=== PATIENT | female | born 1960 | race Caucasian/White ===

== ENCOUNTER → 2019-09-09 | Outpatient (REF) | payer MEDICARE, MEDICAID ==
[2019-09-09 14:10] LABS: BLOOD UREA NITROGEN 12 MG/DL (7-18); CREATININE FOR GFR 0.79 MG/DL (0.55-1.30); GLOMERULAR FILTRATION RATE > 60.0 (>51)
== END ==
LOC: M LABDRAW1 11:43
PROVIDERS: ATTEND Orthopaedic Surgery
DX: M54.6 Pain in thoracic spine (principal)

== ENCOUNTER → 2019-09-25 | Outpatient (CLI) | payer MEDICARE, MEDICAID ==
[~2019-09-25] MED LIST: PROHANCE 279.3MG/ML 15ML VIAL As Ordered ONE; PROHANCE 279.3MG/ML 5ML VIAL As Ordered ONE
--- NOTE | 2019-09-25 14:45 | REPVR ---
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 Contrast material: PROHANCE; Contrast volume: 20 ml; Contrast route: 22; COMPARISON: No relevant prior studies available. FINDINGS: Vertebrae: Mild exaggeration of the thoracic kyphosis. 2 mm of degenerative retrolisthesis of T12 on L1. No acute fracture seen. Mild, chronic anterior wedging of T12. Spinal epidural space: No evidence of epidural mass. Spinal cord: Normal signal. Marrow: Bone marrow signal intensity is benign. There is disc desiccation throughout. Mild to moderate multilevel prevertebral spondylosis. Mild to moderate disc height loss and spondylosis with small endplate Schmorl's nodes from T5-6 through T8-9. A prominent Schmorl's node of T12 superior endplate with adjacent inflammation. There is a smaller Schmorl's node of the L1 superior endplate. Anterior superior endplate inflammation at T9 and L1 is likely inflammatory/degenerative. Trace ventral endplate inflammation elsewhere, likely degenerative. T1-T2: No significant disc disease. No significant spinal canal stenosis. T2-T3: Subtle left paracentral disc protrusion does not contribute to central spinal canal stenosis. T3-T4: No significant disc disease. No significant spinal canal stenosis. T4-T5: Severe right facet arthropathy causing severe right neural foraminal stenosis. Central spinal canal and left foramen are patent. T5-T6: 3 mm cranially migrating right paracentral disc extrusion extends 4 mm above the disc space indenting the right ventral thecal sac causing mild right ventral cord flattening but not contributing to cord myelopathy. Central spinal canal stenosis is mild. The neural foramina are patent. T6-T7: 2 mm right paracentral disc protrusion indents right ventral thecal sac as well as right ventral cord without contributing to cord myelopathy. The central spinal canal remains patent. The neural foramina are patent. T7-T8: 1-2 mm right eccentric central disc protrusion does not contribute to central spinal canal stenosis. The neural foramina are patent. T8-T9: 3 mm right paracentral disc extrusion extends 4 mm above the disc space indenting thecal sac, abutting right cord but not contributing to cord myelopathy. Central spinal canal stenosis is mild. The neural foramina are patent. T9-T10: The central spinal canal is patent. Severe right facet arthropathy causing moderate right neural foraminal stenosis. T10-T11: Mild disc bulge as well as moderate right and mild left facet arthropathy with ligamentum flavum buckling. High-intensity zone in left foraminal disc margin without a focal disc protrusion or extrusion. The central spinal canal is patent. Neural foraminal stenoses are mild. T11-T12: Mild disc bulge as well as moderate facet arthropathy and ligamentum flavum buckling. The central spinal canal remains patent. Mild right neural foraminal stenosis. No significant left neural foraminal narrowing. T12-L1: Retrolisthesis. Cranially and caudally migrating left paracentral disc extrusion measures approximately 5 mm in AP dimension extending approximately 5 mm above the disc space and least 6 mm below disc space. There is indentation of ventral thecal sac as well as ventral cord indentation without cord myelopathy. Central spinal canal stenosis is [id number]. The neural foramina remain patent. Lungs: Patchy right upper lobe opacity, potentially subsegmental atelectasis. Soft tissues: Nonspecific edema in the lower back subcutaneous fat, potentially dependent/positional. IMPRESSION: 1. Images are motion degraded. 2. No evidence of recent compression fracture. 3. Mild to moderate mid thoracic degenerative disc disease. 4. A sizable Schmorl's node of the T12 superior endplate with adjacent endplate inflammation. 5. Advanced facet arthropathy at several levels. 6. Multilevel disc protrusions or extrusions; central spinal canal stenosis is [id number] at the T12-L1 level, mild elsewhere. Electronically signed by: Azalia Ureña On 09/25/2019 14:45:09 PM
== END ==
LOC: M RAD 12:01
PROVIDERS: ATTEND Orthopaedic Surgery
DX: M47.815 Spondylosis without myelopathy or radiculopathy, thoracolumbar region (principal); M51.44 Schmorl's nodes, thoracic region; M51.24 Other intervertebral disc displacement, thoracic region
CPT/HCPCS: 72157; A9576

== ENCOUNTER → 2020-10-19 | Outpatient (REF) ==
--- NOTE | 2020-10-19 12:37 | REPPI ---
INDICATION: DISABILITY. COMPARISON: None TECHNIQUE: AP and lateral views FINDINGS: There is moderate posterior disc space narrowing at every level. There is mild anterior lipping at every level. Vertebral body height and alignment is within normal limits. Degenerative facet joint changes are seen L3-4 to L5-S1 bilaterally. There is mild L5-S1 endplate sclerosis. IMPRESSION: Chronic changes as described above. <Electronically signed by Torrey Tristan > 10/19/20 [id number]
== END ==
LOC: M PLAIMG 11:50
PROVIDERS: ATTEND Internal Medicine
DX: M51.36 Other intervertebral disc degeneration, lumbar region (principal); M51.37 Other intervertebral disc degeneration, lumbosacral region